=== PATIENT | male | born 1950 | race Caucasian/White ===

== ENCOUNTER → 2017-11-24 | Outpatient (CLI) | payer OTHER ==
--- NOTE | 2017-11-24 09:27 | DIAGNOSTIC IMAGING REPORT ---
R EXTREMITY NONVASCULAR LIMITED CLINICAL HISTORY: RT SHOULDER/UPPER ARM, PAIN pain TECHNIQUE: Ultrasound COMPARISON STUDY: None FINDINGS: Normal ultrasonic evaluation of the right shoulder and arm structures. No abnormal mass or collection. IMPRESSION: Normal study The above report was generated using voice recognition software. It may contain grammatical, syntax or spelling errors. Electronically signed by: Carlos Christensen M.D. 11/24/2017 9:26 AM Dictated Date/Time: 11/24/2017 9:25 AM
== END | disposition home or self-care (01) ==
LOC: C.ULTR 08:34
PROVIDERS: ATTEND Student in an Organized Health Care Education/Training Program
DX: M79.601 Pain in right arm (principal)

== ENCOUNTER 2020-06-19 12:56 | Inpatient (IN) ==
[2020-06-19] MEDS ORDERED: HEPARIN (PORCINE) 1000 UNIT/ML 10 ML (CATH LAB USE ONLY) ONE (13:14)
[2020-06-19] MEDS ORDERED: MIDAZOLAM HCL 1 MG/ML 2ML VIAL ONE (13:14)
[2020-06-19] MEDS ORDERED: niCARdipine HCL INJ 2.5 MG/ML 10 ML AMP ONE (13:14)
[2020-06-19] MEDS ORDERED: fentaNYL citrate 100 MCG/2 ML VIAL ONE (13:14)
[2020-06-19] MEDS ORDERED: NITROGLYCERIN/D5W 100MCG/ML 20ML SYR ONE (13:16)
[2020-06-19 13:46] LABS: Basophils # (auto) 0.04 K/uL (0-0.2); Basophils % (auto) 0.5 %; Eosinophils # (auto) 0.12 K/uL (0-0.5); Eosinophils % (auto) 1.5 %; Hematocrit (blood only) 48.1 % (42-52); Hemoglobin 17.8 g/dL (14.0-18.0); Immature Granulocytes # (auto) 0.02 K/uL (0.00-0.02); Immature Granulocytes % (auto) 0.2 %; Lymphocytes # (auto) 2.68 K/uL (1.2-3.4); Lymphocytes % (auto) 33.5 %; Mean Corpuscular Hemoglobin 34.4 pg (25-34); Mean Corpuscular Volume 92.9 fL (80-100); Mean Platelet Volume 9.3 fL (7.4-10.4); Monocytes # (auto) 0.66 K/uL (0.11-0.59); Monocytes % (auto) 8.2 %; Neutrophils # (auto) 4.49 K/uL (1.4-6.5); Neutrophils % (auto) 56.1 %; Platelet Count 242 K/uL (130-400); RDW Coefficient of Variation 13.6 % (11.5-14.5); RDW Standard Deviation 46.1 fL (36.4-46.3); Red Blood Count 5.18 M/uL (4.7-6.1); White Blood Count 8.01 K/uL (4.8-10.8)
[2020-06-19 14:10] LABS: Prothrombin Time 10.3 Seconds (9.0-12.0)
[2020-06-19 14:16] LABS: BUN Creatinine Ratio 15.6 (10-20); Calcium 10.3 mg/dl (8.5-10.1); Creatinine Clr Calc Pharmacy 63.9 ml/min; Est GFR (Non-African American) 66.5; Potassium 3.4 mmol/L (3.5-5.1)
--- NOTE | 2020-06-19 14:56 | History & Physical Report ---
Date of Service June 19, 2020 Assessment & Plan (1) Chest pain: Presentation concerning for acute coronary syndrome and recommend proceeding with urgent cardiac catheterization via right radial artery. Risks, benefits, alternatives of procedure discussed with patient and he is willing to proceed. History of Present Illness Primary Care Provider: Sean Goff MD Mr. Palm is a very pleasant 69-year-old man with no prior cardiac history here for cardiac catheterization. Patient healthy at baseline with only hypertension. Has been having intermittent exertional chest pain over the last month or so. Yesterday had an episode of chest pain, shortness of breath while out walking that persisted. 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 Paige and was seen today. ECG with new ST depressions. Still having intermittent mild chest symptoms at rest and referred for urgent cardiac catheterization. Allergies Allergy/AdvReac Type Severity Reaction Status Date / Time No Known Allergies Allergy Unverified 12/19/12 20:04 Home Medications Medication Instructions Recorded Confirmed Type aspirin [Aspirin Child] 81 mg PO DAILY 06/19/20 06/19/20 History lisinopril-hydrochlorothiazide 1 tab PO DAILY 06/19/20 06/19/20 History metoprolol succinate 25 mg PO DAILY 06/19/20 06/19/20 History multivitamin 1 tab PO DAILY 06/19/20 06/19/20 History Past Med/Surg History Social History Smoking Status: Never smoker Hx Alcohol Use: No Hx Substance Use: No Preferred Language: Kazakh Certified First Assistant Required: No Current Living Situation: Spouse Other Information That Helps Us Care for You: No Feels Safe at Home: Yes Safety Concerns: Feels Safe At This Time Review of Systems All systems reviewed & are unremarkable except as noted in HPI & below Physical Exam Constitutional: WD/WN, vitals as above Eyes: + anicteric sclerae Respiratory: normal respiratory effort, lungs clear to auscultation Cardiovascular: RRR, no murmur, no edema Gastrointestinal (Abdomen): Inspection/Auscultation: abdomen not distended Percussion/Palpation: abdomen soft; abdomen nontender Skin: no rashes, warm and dry Neurologic: no focal motor deficits Psychiatric: A+Ox3, euthymic affect ASA Classification ASA ASA2 Results & Data ([facility]) Vital Signs (Past 12 Hours) Vital Signs Temp Pulse Resp BP Pulse Ox 06/19/20 13:21 97.9 F 90 18 180/97 H 100
--- NOTE | 2020-06-19 14:56 | Pre Anesthesia Assessment ---
Date of Service June 19, 2020 Pre Sedation Assessment Vital Signs Temp Pulse Resp BP Pulse Ox 06/19/20 13:21 97.9 F 90 18 180/97 H 100 Cardiovascular RRR, no murmur, no edema Respiratory normal respiratory effort, lungs clear to auscultation Pre-Sedation Airway Assessment Smoking Status: Never smoker Hx Sleep Apnea: No Hx Difficult Intubation: No Short, Thick Neck: No Thyromental Distance: > or= 3.5 Finger Breadths Oral Cavity: + WNL Mallampati Class: III ASA: ASA2 Procedure Planning Contraindications for Sedation: none Current Medications Reviewed: Yes Notes The planned sedation has been discussed with the patient. Informed Consent was obtained. I have identified the patient, determined the appropriateness of sedation and have assessed the patient immediately prior to the procedure. All medicine(s) and interventions are by my order.
[2020-06-19] MEDS ORDERED: NITROGLYCERIN/D5W 100 MCG/ML BTL ONE (15:29)
[2020-06-19] MEDS ORDERED: HEPARIN 25000 UNIT/500 ML D5W IV ONE (15:29)
--- NOTE | 2020-06-19 15:41 | Post Anesthesia Assessment ---
Date of Service June 19, 2020 Post Sedation Assessment Vital Signs Temp Pulse Resp BP Pulse Ox 06/19/20 13:21 97.9 F 90 18 180/97 H 100 Recovery Score Activity: Moves 4 extremities Respiration: Deep Breath/Cough Circulation: +/-20% PreAnes Value Consciousness: Fully Awake Oxygen Saturation: O2 needed for >90% Discharge Sedation Level of Care: Fast Track Phase II Post Sedation Plan On clinical assessment, the patient appears to have tolerated the sedation without complications. Patient is recovering as anticipated. Patient will continue to be monitored by nursing and may be discharged when sedation discharge criteria are met per below protocol. Upon Completions of procedure up to 15 minutes continue every 5 minute vital signs and the P.A.R. score; then discharge to a Phase I or Fast Track to Phase II per the following guidelines: * Discharge Patient to appropriate Phase II area if PAR is 8 or greater or return to pre- procedure baseline. The post - procedure orders will be as directed. * If PAR score is less than 8 or not return to pre-procedure baseline then patient will follow Phase I monitoring till PAR is reached for Phase II. The Phase I may be done in procedure room or may call to secure a Phase I area. * If naloxone or flumazenil are used for reversal, hold in Phase I for continued monitoring from when last reversal dose was given for a minimum of 60 minutes or longer pending the nurse and/or physician discretion of patient condition before discharge to Phase II. Please call the Sedation Physician to re-evaluate and complete post-note for discharge to Phase II area. Do NOT discharge from procedure sedation or Phase 1 until post- sedation evaluation note is complete by procedure /sedation MD Sedation Discharge Instructions to be given to the patient at discharge to home.
--- NOTE | 2020-06-19 15:46 | Cardiac Catheterization ---
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 Cardiac Status Clinical evaluation leading to the procedure CAD Presenation: Unstable angina Anginal Classification: CCS IV Heart Failure: No Cardiogenic Shock within 24 Hours: No Cardiac Arrest within 24 Hours: No Imaging Studies Past 6 Months: No Stress Studies Past 6 Months: No Diagnostic Physicians Name: Hair Krishnan MD Status: Elective Closure Device Percutaneous Entry Location: Radial Closure Device: Radial Band Recommendations: CABG Intraprocedure Events Significant Disection: No Perforation: No Cardiac Cath Procedure Full Procedure Date June 19, 2020 Pre-Procedure Diagnosis Pre-Procedure Diagnosis: Acute Coronary Syndrome AUC Score AUC Score: 8 Post-Procedure Diagnosis Post-Procedure Diagnosis: Severe CAD and Normal Intracardiac Pressures Procedure(s) Performed Procedure(s) Performed: Coronary Angiography and Left Heart Cath Gym Instructor Hair Krishnan MD Senior Investment Manager(s) Kerrie Estimated Blood Loss Estimated Blood Loss: 10 Medication(s) Medication(s): Fentanyl, Heparin, Lidocaine 1%, Nicardipine, Nitroglycerin and Versed Summary of Findings Indication: Acute coronary syndrome Access: 6Fr right radial artery Catheters: [place] Findings: LM - Medium caliber, luminal irregularities LAD -medium caliber, 90% proximal LAD, 80% mid LAD, medium caliber distal vessel without significant disease and wraps around apex. Small to medium D1 with 95+% ostial/proximal disease. Circumflex -medium caliber vessel, 99% hazy mid segment stenosis. OM 2 with 50% ostial stenosis. Large OM 3 without significant disease. RCA -dominant, medium caliber, proximal luminal irregularities, 70% earlymid stenosis, distal luminal irregularities. Right PDA with 95% ostial stenosis. LVEDP -4 Arterial Closure: TR band Summary: 1. Severe multivessel coronary artery disease -90% proximal LAD, 80% mid LAD. D1 with 95% proximal stenosis 99% mid circumflex (likely acute culprit). 70% earlymid RCA, 95% ostial right PDA 2. Normal intracardiac filling pressure Recommendations: Transfer to [facility] for CABG evaluation. Start heparin infusion, nitroglycerin while awaiting transfer. 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 Any exceptions are noted below. [facility] Card Cath Procedure Codes Cardiac Catheterization Procedure 1: Cardiovascular Cath Procedures: 47945 Coronaries and LHC (+/-LV) Moderate Sedation Procedure 1: Sedation/Anesthesia: 93999 Mod Sedation by the same physician;Init15 Min Child Age 5 & Up Procedure 2: Sedation/Anesthesia: 56193 Mod Sedation by the same physician; Ea [id number] Minutes PG Care Time/CCT Total # of Minutes Spent Total Time Spent with Patient: Total time spent is greater than 50% in coordination of care (as documented) at patient's floor/unit and/or counseling patient:
[2020-06-19] MEDS ORDERED: Heparin IV Adult Wt-Based Standard *NO* Bolus Protocol IV ONE (16:00)
[2020-06-19] MEDS ORDERED: ACETAMINOPHEN 325 MG TAB PO PRN (16:00)
[2020-06-19] MEDS ORDERED: MoRPHine SULFATE 2 MG/ML CARP IV PRN (16:00)
[2020-06-19] MEDS ORDERED: NITROGLYCERIN/D5W 100MCG/ML 250 ML IV SCH (16:00)
[2020-06-19] MEDS ORDERED: HEPARIN SODIUM/DEXTROSE 25,000 UNITS/500 ML BAG IV SCH (16:00)
[2020-06-19] MEDS ORDERED: ONDANSETRON INJ 2 MG/ML 2 ML VIAL IV PRN (16:00)
[2020-06-19] MEDS ORDERED: STAT IV Infusion **Titration per Protocol STA (16:00)
[2020-06-19] MEDS ORDERED: METOPROLOL SUCC 25MG EXT REL TAB ONE (16:12)
[2020-06-19] MEDS ORDERED: METOPROLOL TARTRATE 25 MG TAB PO SCH (16:30)
[2020-06-19] MEDS ORDERED: ATORVASTATIN 40 MG TAB PO ONE (16:45)
[2020-06-19] MEDS ORDERED: POTASSIUM CHLORIDE CRTAB 20 MEQ TABCR PO STA (16:59)
[2020-06-19] MEDS ORDERED: SODIUM CHLORIDE 0.9% 1000ML 1,000 ML IV SCH (17:00)
--- NOTE | 2020-06-19 17:33 | Discharge Summary ---
Date of Service June 19, 2020 Admission HPI Per Admitting Provider Mr. Palm is a very pleasant 69-year-old man with no prior cardiac history here for cardiac catheterization. Patient healthy at baseline with only hypertension. Has been having intermittent exertional chest pain over the last month or so. Yesterday had an episode of chest pain, shortness of breath while out walking that persisted. Due to symptoms contacted his primary environmental law professor Dr. Paige and was seen toda y. ECG with new ST depressions. Still having intermittent mild chest symptoms at rest and referred for urgent cardiac catheterization. Discharge Data Consultations 06/19/20 16:04 Consult Cardiac Rehabilitation Routine Procedures Performed Operation Date: 06/19/20 13:00 Actual Procedures p Cath, Left with Cors and Vent - Jaxon Krishnan MD s Cineradiography w/Routine Exam - Jaxon Krishnan MD Hospital Course (1) Chest pain: Cardiac catheterization revealed 1. Severe multivessel coronary artery disease -90% proximal LAD, 80% mid LAD. D1 with 95% proximal stenosis 99% mid circumflex (likely acute culprit). 70% earlymid RCA, 95% ostial right PDA 2. Normal intracardiac filling pressure CABG recommended. Discussed with primary environmental law professor Dr. Paige and [facility] cardiac surgery Dr. Lockwood. Will be transferred down to [facility] for CABG evaluation later today. In the interim was continued on heparin and n itroglycerin infusion. Blood pressure improved and remained chest pain-free. Coding Level of Care Code None Diagnoses Chest pain R07.9
[2020-06-19] MEDS: POTASSIUM CHLORIDE / WTR 10 MEQ/100 ML PLCT IV SCH ×2 (18:24→19:07)
[2020-06-20] MEDS ORDERED: ASPIRIN 81 MG ECTAB PO SCH (09:00)
[2020-06-20] MEDS ORDERED: ATORVASTATIN 40 MG TAB PO SCH (09:00)
== END 2020-06-19 19:41 | disposition short-term general hospital (02) | DRG 287 ==
LOC: CC 12:56 → 2S 16:05